=== PATIENT | male | born 1995 | race Caucasian/White ===

== ENCOUNTER 2020-09-19 15:43 | Emergency (ER) | payer OTHER ==
[~2020-09-19 15:43] MED LIST: AUGMENTIN 875-1 EACH PO; FLEXERIL10 MG PO; LEVAQUIN750 MG PO; REMERON15 MG PO; SKELAXIN800 MG PO; VOLTAREN **OUT75 MG PO
== END 2020-09-19 16:39 | disposition home or self-care (01) ==
LOC: FER 15:43
DX: H10.32 Unspecified acute conjunctivitis, left eye (principal)
CPT/HCPCS: 99282

== ENCOUNTER 2021-09-03 19:08 | Emergency (ER) | payer SELFPAY ==
[2021-09-03 22:23] LABS: BASOPHIL 0.3 % (0-2); HGB 16.2 g/dl (13.2-18.0); LYMPHOCYTE 19.6 % (15-48); MCH 30.9 pg (25.0-31.0); MCHC 34.5 g/dL (32.0-36.0); MCV 89.5 fL (78.0-100.0); MONOCYTE 8.1 % (0-12); MPV 10.7 fL (6.0-9.5); NEUTROPHIL 69.8 % (41-80); NRBC 0; PLT 222 K/uL (150-400); RBC 5.25 M/uL (4.70-6.00); WBC 13.9 K/uL (4.0-10.5)
[2021-09-03 22:36] LABS: ALBUMIN 4.3 g/dL (3.4-5.0); BILIRUBIN - TOTAL 0.7 mg/dL (0.2-1.0); BUN/CREAT RATIO (CALC) 16.2 RATIO; CREATININE 0.99 mg/dL (0.67-1.17); GLOBULIN (CALCULATION) 3.9 g/dL; POTASSIUM 4.2 mmol/L (3.5-5.1); TOTAL PROTEIN 8.2 g/dL (6.4-8.2)
[2021-09-04] MEDS ORDERED: AMOX TR-K CLV1 EAC4 PO (01:47)
== END 2021-09-04 02:01 | disposition home or self-care (01) ==
LOC: FER 19:08
PROVIDERS: Physician Assistant
DX: K11.20 Sialoadenitis, unspecified (principal)
CPT/HCPCS: 36415; 70490; 80053; 85025